=== PATIENT | female | born 1930 | race African-American/Black ===

== ENCOUNTER 2016-11-09 09:49 | Inpatient (IN) | payer OTHER ==
[~2016-11-09] VITALS: Ht 167.6 cm; Wt 79.9 kg
--- NOTE | ~2016-11-09 | EKG ---
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: don : 1930 Requested By: Erasmo Jenkins Order Number: [id number] MD: Abdoul Crum Measurements Intervals [place] Rate: 55 P: 1 CA: 216 QRS: 260 QRSD: 117 T: -54 QT: 489 QTc: 468 Interpretive Statements Sinus rhythm Borderline prolonged CA interval LAD, consider left anterior fascicular block ST depression V1-V3, rule out ischemia No previous ECG available for comparison Electronically Signed On 11-09-2016 15:49:49 CDT by Abdoul Crum [email or web address] <ELECTRONICALLY SIGNED> By: Abdoul Crum MD 11/09/16 1549 1008 Abdoul Crum MD /HARVINDER
--- NOTE | ~2016-11-09 | EKG ---
[address] [address] ELECTROCARDIOGRAM REPORT Name: BENTLEY ARNOLD V Room #: 439-P ADM IN M.R.#: [id number] Admission: 11/09/16 Attend Phys: Mino Cohen MD Discharge: Date of : 32 Report #: [id number] THIS REPORT FOR: //name// [facility] ED Test Date: 2016-11-09 Test Time: 10:33:15 Pat Name: BENTLEY ARNOLD Department: Room: 439 Gender: F Valet Attendant: Darien CORDERO : 1930 Requested By: Erasmo Jenkins Order Number: [id number] MD: Abdoul Crum Measurements Intervals [place] Rate: 53 P: 30 [place]: 224 QRS: -90 QRSD: 94 T: -70 QT: 496 QTc: 466 Interpretive Statements Sinus rhythm Prolonged OH interval Abnrm T, probable ischemia, anterolateral No previous ECG available for comparison Electronically Signed On 11-09-2016 15:50:16 CDT by Abdoul Crum [email or web address] <ELECTRONICALLY SIGNED> By: Abdoul Crum MD 11/09/16 1550 1033 1033 MD LUCIA Ambrocio
--- NOTE | ~2016-11-09 | EKG ---
[address] [place] [address] ELECTROCARDIOGRAM REPORT Name: BENTLEY ARNOLD V Room #: 439-P ADM IN M.R.#: [id number] Admission: 11/09/16 Attend Phys: Mino Cohen MD Discharge: Date of : 32 Report #: [id number] THIS REPORT FOR: //name// [facility] ED Test Date: 2016-11-09 Test Time: 10:39:29 Pat Name: BENTLEY ARNOLD Department: Room: 439 Gender: F Hearing Therapy Director: Darien CORDERO : 1930 Requested By: Erasmo Jenkins Order Number: [id number] MD: Abdoul Crum Measurements Intervals [place] Rate: 56 P: 45 [place]: 210 QRS: 265 QRSD: 102 T: -74 QT: 474 QTc: 458 Interpretive Statements Sinus rhythm LAD, consider left anterior fascicular block Lateral infarct, age indeterminate Abnormal T, consider ischemia, anterior leads Electronically Signed On 11-09-2016 15:50:33 CDT by Abdoul Crum [email or web address] <ELECTRONICALLY SIGNED> By: Abdoul Crum MD 11/09/16 1550 1039 38 Abdoul Crum MD /HARVINDER
--- NOTE | ~2016-11-09 | 2DMMODE ---
[facility] [address] [place] [address] 2 D/M-MODE ECHOCARDIOGRAM Name: BENTLEY ARNOLD V Room #: 439-P [facility] IN ..#: [id number] Admission: 11/09/16 Attend Phys: Mino Cohen MD Discharge: Date of : 32 Date of Service: 11/10/16 1101 Report #: [id number] THIS REPORT FOR: //name// APPROVED REPORT Study performed: 11/10/2016 08:37:36 EXAM: Comprehensive 2D, Doppler, and color-flow Echocardiogram Patient Location: Bedside Room #: 439 Status: routine Other Information Study Quality: Adequate Indications Congestive Heart Failure Hypertension/HDD HLP. 2D Dimensions RVDd: 49.61 mm LVEF(%): 70.41 (>50%) IVSd: 10.67 (7-11mm) LVOT Diam: 19.33 (18-24mm) LVDd: 37.08 mm PWd: 10.46 (7-11mm) Ascending Ao: 25.12 (22-36mm) LVDs: 22.58 (25-40mm) Aortic Root: 28.38 mm IVC: 20.00 mm Ball's LVEF: 70.41 % Volumes Left Atrial Volume (Systole) Single Plane 4CH: 17.04 mL Single Plane 2CH: 21.72 mL LA ESV Index: 12.00 mL/m2 Aortic Valve AoV Peak Randolph.: 1.37 m/s AO Peak Gr.: 7.52 mmHg LVOT Max P.37 mmHg LVOT Max V: 1.16 m/s ARCHIE Vmax: 2.48 cm2 Mitral Valve E/A Ratio: 0.4 MV Decel. Time: 359.88 ms MV E Max Randolph.: 0.40 m/s MV A Randolph.: 1.11 m/s [facility] [place] [address] 2 D/M-MODE ECHOCARDIOGRAM Name: BENTLEY ARNOLD V Room #: 439-P [facility] IN ..#: [id number] Admission: 11/09/16 Attend Phys: Mino Cohen MD Discharge: Date of : 32 Date of Service: 11/10/16 1101 Report #: [id number] MV PHT: 104.36 ms IVRT: 207.61 ms Pulmonary Valve PV Peak Randolph.: 0.70 m/s PV Peak Gr.: 1.98 mmHg Pulmonary Vein P Vein S: 0.44 m/s P Vein A: 0.36 m/s P Vein D: 0.25 m/s P Vein A Dur.: 129.2 msec P Vein S/D Ratio: 1.76 Tricuspid Valve TR Peak Randolph.: 3.42 m/s RAP Estimate: 15.00 mmHg TR Peak Gr.: 46.83 mmHg PA Pressure: 62.00 mmHg Left Ventricle The left ventricle is normal size. There is normal left ventricular wall thickness. Left ventricular systolic function is normal. LVEF is 60%. Grade I - abnormal relaxation pattern. Right Ventricle Right ventricle is dilated. Right ventricle is hypokinetic. Atria The left atrium size is normal. Right atrium is dilated. Aortic Valve The aortic valve is sclerotic with normal excursion. No aortic regurgitation is present. There is no aortic valvular stenosis. Mitral Valve The mitral valve is normal in structure. Mild mitral regurgitation. No evidence of mitral valve stenosis. Tricuspid Valve The tricuspid valve is normal in structure. There is no tricuspid valve stenosis. There is mild tricuspid regurgitation. The right atrial pressure is estimated at 15 mmHg. There is moderate pulmonary hypertension. Pulmonic Valve The pulmonary valve is normal in structure. Trace pulmonic regurgitation. [facility] [address] [place] [address] 2 D/M-MODE ECHOCARDIOGRAM Name: BENTLEY ARNOLD V Room #: 439-P [facility] IN ..#: [id number] Admission: 11/09/16 Attend Phys: Mino Cohen MD Discharge: Date of : 32 Date of Service: 11/10/16 1101 Report #: [id number] Great Vessels The aortic root is normal in size. The inferior vena cava is dilated with no inspiratory collapse. Pericardium There is no pericardial effusion. <Conclusion> The left ventricle is normal size. Left ventricular systolic function is normal. LVEF is 60%. Grade I - abnormal relaxation pattern. Right ventricle is dilated. Right atrium is dilated. The aortic valve is sclerotic with normal excursion. Mild mitral regurgitation. There is mild tricuspid regurgitation. The right atrial pressure is estimated at 15 mmHg. There is moderate pulmonary hypertension. <ELECTRONICALLY SIGNED> By: Abdoul Crum MD 11/10/16 1101 110 110 Abdoul Crum MD /INF
[2016-11-09 09:51] VITALS: BP 152/89
[2016-11-09 10:34] LABS: ABSOLUTE NEUTROPHILS 5.8 thou/uL (1.4-8.2); BASOPHILS 1.2 % (0.0-2.0); EOSINOPHILS 3.7 % (0.0-3.0); HEMATOCRIT 43.1 % (37.0-47.0); HEMOGLOBIN 14.2 gm/dL (12.0-15.0); LYMPHOCYTES 22.5 % (24.0-44.0); MCH 30.4 pg (26.0-34.0); MCV 92.2 fL (80.0-100.0); MONOCYTES 6.4 % (1.0-8.0); PLATELET COUNT 245 thou/uL (150-400); POLYS 66.2 % (36.0-66.0); RBC 4.68 mil/uL (4.20-5.00); RDW 15.3 % (10.5-14.5); WBC 8.7 thou/uL (4.0-11.0)
[2016-11-09 10:35] LABS: MANUAL DIFF NO
[2016-11-09 10:40] LABS: ANION GAP 8 mmol/L (7-16); BUN 18 mg/dL (7-18); CALCIUM 9.4 mg/dL (8.5-10.1); CHLORIDE 106 mmol/L (98-107); CO2 27 mmol/L (21-32); CREATININE 0.8 mg/dL (0.6-1.0); GLUCOSE 94 mg/dL (74-106); POTASSIUM 3.7 mmol/L (3.5-5.1); SODIUM 141 mmol/L (136-145)
[2016-11-09 10:52] LABS: ALKALINE PHOSPHATASE 77 U/L (46-116); NT-PRO BRAIN NAT PEPTIDE 5772 pg/mL (<300); SGOT 17 U/L (15-37); SGPT 20 U/L (30-65); TOTAL BILIRUBIN 0.5 mg/dL (<0.1-1.0); TOTAL PROTEIN 7.8 g/dL (6.4-8.2); TROPONIN-I < 0.04 ng/mL (<0.04-0.07)
[2016-11-09 11:03] LABS: APTT 38.7 Seconds (24.5-32.8); INR 1.4; PROTIME 14.1 Seconds (9.3-11.4)
[2016-11-09] MEDS ORDERED: ARICEPT 5 MG TAB5 MG PO (12:50)
[2016-11-09] MEDS ORDERED: ASPIR 8181 MG PO (12:51)
[2016-11-09] MEDS ORDERED: COLACE100 MG PO (12:51)
[2016-11-09] MEDS ORDERED: LASIX 40 MG TAB40 M2 PO (12:52)
[2016-11-09] MEDS ORDERED: HYDROCODON-ACE1 EAC5 PO (12:52)
[2016-11-09] MEDS ORDERED: LISINOPRIL20 MG PO (12:53)
[2016-11-09] MEDS ORDERED: TOPROL XL100 MG PO (12:53)
[2016-11-09 12:54] VITALS: BP 158/60
[2016-11-09] MEDS ORDERED: ALDACTONE25 MG PO (12:54)
[2016-11-09] MEDS ORDERED: XARELTO20 MG PO (12:54)
[2016-11-09] MEDS ORDERED: ZOLOFT25 MG PO (12:55)
[2016-11-09 13:18] VITALS: BP 149/62
[2016-11-09 13:28] LABS: URINE BILIRUBIN NEGATIVE (Negative); URINE BLOOD TRACE (Negative); URINE COLOR YELLOW; URINE GLUCOSE-RANDOM* NEGATIVE (Negative); URINE KETONES NEGATIVE (Negative); URINE LEUKOCYTES-REFLEX TRACE (Negative); URINE PROTEIN (DIPSTICK) NEGATIVE (Negative); URINE SPECIFIC GRAVITY <= 1.005 (1.003-1.035); URINE UROBILINOGEN 0.2 E.U./dl (0.2-1.0)
[2016-11-09 14:00] VITALS: BP 141/64
[2016-11-09 16:00] VITALS: BP 102/62
[2016-11-09 18:12] VITALS: BP 140/71
[2016-11-10 04:14] VITALS: BP 143/87
[2016-11-10 07:08] LABS: HEMATOCRIT 41.7 % (37.0-47.0); HEMOGLOBIN 13.9 gm/dL (12.0-15.0); MCH 30.3 pg (26.0-34.0); MCHC 33.2 g/dL (28.0-37.0); MCV 91.3 fL (80.0-100.0); RBC 4.57 mil/uL (4.20-5.00); RDW 15.5 % (10.5-14.5); WBC 8.8 thou/uL (4.0-11.0)
[2016-11-10 07:24] LABS: CALCIUM 9.1 mg/dL (8.5-10.1); CREATININE 0.9 mg/dL (0.6-1.0); POTASSIUM 3.5 mmol/L (3.5-5.1)
[2016-11-10 08:00] VITALS: BP 97/83
[2016-11-10 16:00] VITALS: BP 146/54
[2016-11-10 19:41] VITALS: BP 123/54
[2016-11-11 03:36] VITALS: BP 122/64
[2016-11-11 06:27] LABS: HEMATOCRIT 42.7 % (37.0-47.0); HEMOGLOBIN 14.4 gm/dL (12.0-15.0); MCHC 33.8 g/dL (28.0-37.0); MCV 91.6 fL (80.0-100.0); RBC 4.66 mil/uL (4.20-5.00); RDW 15.1 % (10.5-14.5); WBC 9.1 thou/uL (4.0-11.0)
[2016-11-11 06:33] LABS: CALCIUM 9.3 mg/dL (8.5-10.1); CREATININE 0.8 mg/dL (0.6-1.0); POTASSIUM 3.4 mmol/L (3.5-5.1)
[2016-11-11 08:43] VITALS: BP 134/54
[2016-11-11 16:26] VITALS: BP 117/78
[2016-11-11 19:18] VITALS: BP 125/51
[2016-11-12 03:31] VITALS: BP 148/67
[2016-11-12 08:00] VITALS: BP 148/91
[2016-11-12] MEDS ORDERED: CEFPODOXIME PR200 M1 PO (15:20)
[2016-11-12 15:39] VITALS: BP 124/75
== END 2016-11-12 16:47 | disposition short-term general hospital (02) | DRG 291 ==
LOC: ER 09:49 → 4S 12:40 → EROBS 12:40 → 4S 13:20
PROVIDERS: Emergency Medicine; Hospitalist
DX: I11.0 Hypertensive heart disease with heart failure (principal); G92 Toxic encephalopathy; N39.0 Urinary tract infection, site not specified; H40.9 Unspecified glaucoma; F03.90 Unspecified dementia, unspecified severity, without behavioral disturbance, psychotic disturbance, mood disturbance, and anxiety; I50.43 Acute on chronic combined systolic (congestive) and diastolic (congestive) heart failure; E78.5 Hyperlipidemia, unspecified; Z79.899 Other long term (current) drug therapy; Z86.73 Personal history of transient ischemic attack (TIA), and cerebral infarction without residual deficits; Z79.82 Long term (current) use of aspirin; Z86.718 Personal history of other venous thrombosis and embolism; Z86.711 Personal history of pulmonary embolism
CPT/HCPCS: 10100

== ENCOUNTER 2018-01-15 14:16 | Emergency (ER) | payer OTHER ==
[~2018-01-15] VITALS: Ht 172.7 cm; Wt 99.8 kg
--- NOTE | ~2018-01-15 | EKG ---
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: KORY : 1930 Requested By: Stephanie Magallon Order Number: [id number] MD: Levy Parker Measurements Intervals [place] Rate: 24 P: MS: QRS: 136 QRSD: 105 T: -42 QT: 516 QTc: 326 Interpretive Statements Severe junctional bradycardia Early R-wave progression Compared to ECG 11/09/2016 10:39:29 Sinus rhythm is no longer present Electronically Signed On 01-15-2018 16:46:20 CDT by Levy Parker [email or web address] <ELECTRONICALLY SIGNED> By: Levy Parker MD, [facility] 01/15/18 1646 1417 141 Levy Parker MD, FAC /EPI
[~2018-01-15 14:16] MED LIST: ALDACTONE25 MG PO; ARICEPT 5 MG TAB5 MG PO; ASPIR 8181 MG PO; CEFPODOXIME PR200 M1 PO; COLACE100 MG PO; HYDROCODON-ACE1 EAC5 PO; LASIX 40 MG TAB40 M2 PO; LISINOPRIL20 MG PO; TOPROL XL100 MG PO; XARELTO20 MG PO; ZOLOFT25 MG PO
[2018-01-15 14:24] VITALS: BP 87/44
[2018-01-15] MEDS ORDERED: ATIVAN0.5 MG PO (14:55)
[2018-01-15 15:10] LABS: ABSOLUTE NEUTROPHILS 7.3 thou/uL (1.4-8.2); BASOPHILS 0.1 % (0.0-2.0); EOSINOPHILS 0.9 % (0.0-3.0); HEMOGLOBIN 10.1 gm/dL (12.0-15.0); LYMPHOCYTES 39.8 % (24.0-44.0); MCH 32.5 pg (26.0-34.0); MCHC 29.7 g/dL (28.0-37.0); MCV 109.4 fL (80.0-100.0); MONOCYTES 6.2 % (1.0-8.0); PLATELET COUNT 150 thou/uL (150-400); RBC 3.11 mil/uL (4.20-5.00); RDW 20.9 % (10.5-14.5); WBC 13.8 thou/uL (4.0-11.0)
[2018-01-15 15:12] LABS: ANION GAP 15 mmol/L (7-16); BUN 35 mg/dL (7-18); CHLORIDE 123 mmol/L (98-107); CO2 19 mmol/L (21-32); GLUCOSE 192 mg/dL (74-106); POTASSIUM 3.2 mmol/L (3.5-5.1); SODIUM 157 mmol/L (136-145)
[2018-01-15 15:15] LABS: CALCIUM 14.5 mg/dL (8.5-10.1)
[2018-01-15 15:21] LABS: ALBUMIN 1.3 g/dL (3.4-5.0); DIRECT BILIRUBIN 0.1 mg/dL (<0.1-0.3); SGOT 40 U/L (15-37); SGPT 22 U/L (30-65); TOTAL BILIRUBIN 0.4 mg/dL (<0.1-1.0); TROPONIN-I <0.06 ng/mL (<0.06)
[2018-01-15 15:26] LABS: APTT 28.2 Seconds (24.5-32.8); INR 1.8; PROTIME 18.2 Seconds (9.3-11.4)
[2018-01-15 15:27] LABS: BE(vivo) -17.8 mmol/L (-2 to +3); HCO3 12.4 mmol/L (22.0-26.0); PO2 459.1 mmHg (80.0-100.0); sO2 99.7 % (92.0-98.0)
[2018-01-15 15:28] LABS: pH 7.048 (7.360-7.450)
[2018-01-15 15:46] LABS: ANISOCYTOSIS 2+; MACROCYTES 2+; POLYCHROMASIA 1+
[2018-01-15 15:47] LABS: BURR CELLS FEW; SCHISTOCYTES RARE
[2018-01-15 16:59] LABS: HCO3 17.2 mmol/L (22.0-26.0); PO2 146.3 mmHg (80.0-100.0); pH 7.128 (7.360-7.450); sO2 98.1 % (92.0-98.0)
[2018-01-15 20:07] VITALS: BP 0/0
[2018-01-18 09:53] LABS: POC ANION GAP Outside Report Range mmol/L (7-16); POC BUN 38 mg/dL (7-18); POC CA IONIZED > 8.9 mg/dL (4.5-5.3); POC CHLORIDE > 119 mmol/L (98-107); POC CREATININE 1.1 mg/dL (0.6-1.3); POC GLUCOSE 227 mg/dL (70-99); POC HEMOGLOBIN 10.5 g/dL (12.0-15.0); POC POTASSIUM 3.9 mmol/L (3.5-5.1); POC SODIUM 154 mmol/L (136-145); POC TCO2 23 mmol/L (21-32)
== END 2018-01-15 17:51 ==
LOC: ER 14:16 → EROBS 16:25 → ER 16:25
PROVIDERS: Emergency Medicine; Internal Medicine
DX: I46.9 Cardiac arrest, cause unspecified (principal); I10 Essential (primary) hypertension; F03.90 Unspecified dementia, unspecified severity, without behavioral disturbance, psychotic disturbance, mood disturbance, and anxiety; E78.5 Hyperlipidemia, unspecified; Z86.73 Personal history of transient ischemic attack (TIA), and cerebral infarction without residual deficits; Z86.718 Personal history of other venous thrombosis and embolism